=== PATIENT | female | born 1975 | race Caucasian/White ===

== ENCOUNTER 2018-12-02 11:59 | Emergency (ER) | payer BC ==
[~2018-12-02] VITALS: Ht 160 cm; Wt 99.8 kg
[2018-12-02 12:08] VITALS: BP_SYST 140
--- NOTE | 2018-12-02 12:15 | NUR ---
Patient to ER bed 7 to gown for evaluation. Side rails up. Report given to Ирина ANTOINE.
--- NOTE | 2018-12-02 12:21 | NUR ---
Patient c/o constant ringing in right ear. Patient stated she tried to blow her nose to release the pressure on affected area but heard a loud "pop" which caused pain during that time. Patient does not complain of pain @ this time. Patient in no signs of distress.
--- NOTE | 2018-12-02 12:26 | NUR ---
Dr. Kim @ bedside for examination.
[2018-12-02 12:40] VITALS: BP_SYST 140
--- NOTE | 2018-12-02 12:40 | NUR ---
Patient given written and verbal discharge instructions and verbalizes understanding. ER MD discussed with patient the results and treatment provided. Patient in stable condition. ID arm band removed. Rx of zyrtec and cortisporin given. Patient educated on pain management and to follow up with PMD. Pain Scale 0/10. Opportunity for questions provided and answered. Medication side effect fact sheet provided.
== END 2018-12-02 12:40 | disposition home or self-care (01) ==
LOC: SED 11:59
DX: H65.91 Unspecified nonsuppurative otitis media, right ear (principal); I10 Essential (primary) hypertension
CPT/HCPCS: 99283